=== PATIENT | male | born 1980 | race African-American/Black ===

== ENCOUNTER 2017-03-08 03:59 | Emergency (ER) | payer OTHER ==
[~2017-03-08] VITALS: Ht 188 cm; Wt 92.2 kg
[2017-03-08] MEDS ORDERED: FLOXIN OTIC0.3 % AD (04:21)
[2017-03-08] MEDS ORDERED: LORTAB 1010 MG PO (04:21)
[2017-03-08] MEDS ORDERED: AMOX/K CLAV875 M1 PO (04:21)
[2017-03-08 04:26] VITALS: BP 156/90
== END 2017-03-08 04:27 | disposition home or self-care (01) | DRG 153 ==
LOC: ED 03:59
DX: H66.91 Otitis media, unspecified, right ear (principal)

== ENCOUNTER 2018-05-18 18:17 | Emergency (ER) | payer SELFPAY ==
[~2018-05-18] VITALS: Ht 188 cm; Wt 86.0 kg
[~2018-05-18 18:17] MED LIST: AMOX/K CLAV875 M1 PO; FLOXIN OTIC0.3 % AD; LORTAB 1010 MG PO
[2018-05-18 19:52] VITALS: BP 127/59
== END 2018-05-18 19:52 | disposition home or self-care (01) | DRG 563 ==
LOC: ED 18:17
DX: S93.401A Sprain of unspecified ligament of right ankle, initial encounter (principal); X50.0XXA Overexertion from strenuous movement or load, initial encounter

== ENCOUNTER 2018-10-14 21:15 | Emergency (ER) | payer BC ==
[~2018-10-14] VITALS: Ht 188 cm; Wt 86.6 kg
[2018-10-14] MEDS ORDERED: VOLTAREN - GENE75 MG PO (21:49)
[2018-10-14 21:58] VITALS: BP 127/75
== END 2018-10-14 21:58 | disposition home or self-care (01) | DRG 395 ==
LOC: ED 21:15
DX: K40.90 Unilateral inguinal hernia, without obstruction or gangrene, not specified as recurrent (principal)

== ENCOUNTER → 2018-11-10 | Day surgery (SDC) | payer BC ==
[~2018-11-10] MED LIST changes: +VOLTAREN - GENE75 MG PO
[2018-11-10 07:33] VITALS: BP 123/57
[2018-11-10 09:04] LABS: BARBITURATES NEGATIVE (NEGATIVE); COCAINE POSITIVE (NEGATIVE); METHADONE NEGATIVE (NEGATIVE); OXCYCODONE NEGATIVE (NEGATIVE); TETRAHYDROCANNABIONOL POSITIVE (NEGATIVE); TRICYLIC ANTIDEPRESSANTS NEGATIVE (NEGATIVE)
== END | disposition home or self-care (01) | DRG 395 ==
LOC: ORM 07:09
PROVIDERS: ATTEND Surgery
DX: K40.20 Bilateral inguinal hernia, without obstruction or gangrene, not specified as recurrent (principal); R82.5 Elevated urine levels of drugs, medicaments and biological substances; Z53.09 Procedure and treatment not carried out because of other contraindication

== ENCOUNTER 2018-11-19 07:40 | Day surgery (SDC) | payer BC ==
[~2018-11-19] VITALS: Ht 188 cm; Wt 83.9 kg
[2018-11-19 08:13] LABS: BARBITURATES NEGATIVE (NEGATIVE); COCAINE NEGATIVE (NEGATIVE); METHADONE NEGATIVE (NEGATIVE); OXCYCODONE NEGATIVE (NEGATIVE); TETRAHYDROCANNABIONOL POSITIVE (NEGATIVE); TRICYLIC ANTIDEPRESSANTS NEGATIVE (NEGATIVE)
[2018-11-19] MEDS ORDERED: PERCOCET 5/325M1 TAB PO (10:04)
[2018-11-19 10:57] VITALS: BP 124/75
== END 2018-11-19 11:15 | disposition home or self-care (01) | DRG 352 ==
LOC: ORM 07:40
PROVIDERS: ATTEND Surgery
PROC: 0YUA4JZ Supplement Bilateral Inguinal Region with Synthetic Substitute, Percutaneous Endoscopic Approach (ICD-10-PCS; principal; 2018-11-19)
DX: K40.20 Bilateral inguinal hernia, without obstruction or gangrene, not specified as recurrent (principal)
CPT/HCPCS: C1781; J1100; J2710

== ENCOUNTER 2019-03-12 15:13 | Emergency (ER) | payer BC ==
[~2019-03-12] VITALS: Ht 188 cm; Wt 84.0 kg
[~2019-03-12 15:13] MED LIST changes: +PERCOCET 5/325M1 TAB PO
[2019-03-12 16:29] LABS: HEMATOCRIT 42.5 % (39.0-50.0); HEMOGLOBIN 13.9 g/dl (14.0-18.0); IMMATURE GRANULOCYTES 0.4 % (0.0-5.0); MEAN CELL VOLUME 90.2 fL CALC (80.0-100.0); MEAN CORPUSCULAR HGB 29.5 pG CALC (26.0-32.0); MEAN CORPUSCULAR HGB CONC 32.7 g/L CALC (32.0-36.0); NEUT# 7.93 thou/uL (1.82-7.42); RED BLOOD COUNT 4.71 mill/uL (4.70-6.10); RED CELL DISTRI WIDTH 12.8 % (11.5-15.5)
[2019-03-12 16:31] LABS: URINE BILIRUBIN - DIPSTICK NEGATIVE (NEGATIVE); URINE BLOOD DIPSTICK NEGATIVE (NEGATIVE); URINE COLOR YELLOW; URINE GLUCOSE - DIPSTICK NEGATIVE (NEGATIVE); URINE KETONE NEGATIVE (NEGATIVE); URINE LEUK ESTERASE NEGATIVE (NEGATIVE); URINE NITRITE - DIPSTICK NEGATIVE (Negative); URINE PROTEIN - DIPSTICK NEGATIVE (NEG-TRACE); URINE SPECIFIC GRAVITY <=1.005; URINE UROBILINOGEN - DIPSTICK 0.2 E.U./dL (0.2)
[2019-03-12 16:49] LABS: ALBUMIN 4.9 g/dL (3.2-5.0); ALKALINE PHOSPHATASE 55 u/l (38-126); ANION GAP 16 (6-22 (CALC)); BUN 5 mg/dL (9-20); BUN/CREATININE RATIO 5 (12-20 (CALC)); CARBON DIOXIDE 25 mmol/l (22-30); CHLORIDE 100 mmol/l (95-108); GFR > 60 ML/MIN (>=60 (CALC)); GFR FOR AFR.AMER. > 60 ML/MIN (>=60 (CALC)); POTASSIUM 3.5 mmol/l (3.5-5.1); SGOT/AST 50 u/l (17-59); SODIUM 138 mmol/l (137-146); TOTAL PROTEIN 8.7 g/dL (6.3-8.2)
[2019-03-12 16:50] LABS: BILIRUBIN, TOTAL 0.6 mg/dL (0.0-1.4)
[2019-03-12] MEDS ORDERED: ZOFRAN4 MG/TAB PO (17:55)
[2019-03-12 18:04] VITALS: BP 136/80
== END 2019-03-12 18:04 | disposition home or self-care (01) | DRG 392 ==
LOC: ED 15:13
DX: R11.2 Nausea with vomiting, unspecified (principal); F17.210 Nicotine dependence, cigarettes, uncomplicated

== ENCOUNTER 2020-04-10 22:31 | Emergency (ER) | payer SELFPAY ==
[~2020-04-10] VITALS: Ht 188 cm; Wt 100.0 kg
[~2020-04-10 22:31] MED LIST changes: +ZOFRAN4 MG/TAB PO
[2020-04-11] MEDS ORDERED: LORTAB 1010 MG PO (02:41)
[2020-04-11] MEDS ORDERED: CEPHALEXIN500 MG PO (02:41)
[2020-04-11 03:40] VITALS: BP 132/80
== END 2020-04-11 03:45 | disposition home or self-care (01) | DRG 563 ==
LOC: ED 22:31
PROC: 0HQNXZZ Repair Left Foot Skin, External Approach (ICD-10-PCS; principal; 2020-04-10)
DX: S92.532B Displaced fracture of distal phalanx of left lesser toe(s), initial encounter for open fracture (principal); F17.200 Nicotine dependence, unspecified, uncomplicated; W20.8XXA Other cause of strike by thrown, projected or falling object, initial encounter; Y93.89 Activity, other specified; Y92.410 Unspecified street and highway as the place of occurrence of the external cause; Z20.822 Contact with and (suspected) exposure to COVID-19

== ENCOUNTER 2020-05-27 18:15 | Emergency (ER) | payer SELFPAY ==
[~2020-05-27] VITALS: Ht 188 cm; Wt 90.0 kg
[~2020-05-27 18:15] MED LIST changes: +CEPHALEXIN500 MG PO
[2020-05-27 19:59] LABS: URINE BILIRUBIN - DIPSTICK NEGATIVE (NEGATIVE); URINE BLOOD DIPSTICK NEGATIVE (NEGATIVE); URINE COLOR YELLOW; URINE GLUCOSE - DIPSTICK NEGATIVE (NEGATIVE); URINE KETONE NEGATIVE (NEGATIVE); URINE LEUK ESTERASE NEGATIVE (NEGATIVE); URINE NITRITE - DIPSTICK NEGATIVE (Negative); URINE PROTEIN - DIPSTICK NEGATIVE (NEG-TRACE); URINE SPECIFIC GRAVITY 1.025; URINE UROBILINOGEN - DIPSTICK 0.2 E.U./dL (0.2)
[2020-05-27 19:59] LABS: HEMATOCRIT 42.3 % (39.0-50.0); HEMOGLOBIN 13.6 g/dl (14.0-18.0); IMMATURE GRANULOCYTES 0.2 % (0.0-5.0); MEAN CORPUSCULAR HGB 29.9 pG CALC (26.0-32.0); MEAN CORPUSCULAR HGB CONC 32.2 g/dL CAL (32.0-36.0); NEUT# 5.3 thou/uL (1.82-7.42); RED BLOOD COUNT 4.55 mill/uL (4.70-6.10); RED CELL DISTRI WIDTH 13.6 % (11.5-15.5)
[2020-05-27 20:13] LABS: ALKALINE PHOSPHATASE 47 u/l (38-126); BILIRUBIN, TOTAL 0.4 mg/dL (0.0-1.4); BUN 11 mg/dL (9-20); BUN/CREATININE RATIO 14 (12-20 (CALC)); CARBON DIOXIDE 26 mmol/l (22-30); CHLORIDE 105 mmol/l (95-108); CREATININE 0.8 mg/dL (0.7-1.3); GFR > 60 ML/MIN (>=60 (CALC)); GFR FOR AFR.AMER. > 60 ML/MIN (>=60 (CALC)); SGOT/AST 19 u/l (17-59); SODIUM 136 mmol/l (137-146)
[2020-05-27 20:36] LABS: ALBUMIN 3.6 g/dL (3.2-5.0); ANION GAP 9 (6-22 (CALC)); POTASSIUM 4.3 mmol/l (3.5-5.1); TOTAL PROTEIN 6.4 g/dL (6.3-8.2)
[2020-05-27] MEDS ORDERED: VOLTAREN75 MG PO (20:41)
[2020-05-27 20:50] VITALS: BP 118/77
== END 2020-05-27 20:50 | disposition home or self-care (01) | DRG 563 ==
LOC: ED 18:15
PROVIDERS: Family Medicine
DX: S39.012A Strain of muscle, fascia and tendon of lower back, initial encounter (principal); X58.XXXA Exposure to other specified factors, initial encounter

== ENCOUNTER 2021-04-09 07:49 | Emergency (ER) | payer SELFPAY ==
[~2021-04-09] VITALS: Ht 188 cm; Wt 79.0 kg
[~2021-04-09 07:49] MED LIST changes: +VOLTAREN75 MG PO
[2021-04-09 08:13] VITALS: BP 128/81
[2021-04-09 08:21] LABS: HEMATOCRIT 42.5 % (39.0-50.0); HEMOGLOBIN 14.2 g/dl (14.0-18.0); IMMATURE GRANULOCYTES 0.1 % (0.0-5.0); MEAN CORPUSCULAR HGB 30.4 pG CALC (26.0-32.0); MEAN CORPUSCULAR HGB CONC 33.4 g/dL CAL (32.0-36.0); NEUT# 8.09 thou/uL (1.82-7.42); RED BLOOD COUNT 4.67 mill/uL (4.70-6.10); RED CELL DISTRI WIDTH 12.7 % (11.5-15.5)
[2021-04-09 08:25] LABS: URINE BILIRUBIN - DIPSTICK NEGATIVE (NEGATIVE); URINE BLOOD DIPSTICK NEGATIVE (NEGATIVE); URINE COLOR YELLOW; URINE GLUCOSE - DIPSTICK NEGATIVE (NEGATIVE); URINE KETONE NEGATIVE (NEGATIVE); URINE LEUK ESTERASE NEGATIVE (NEGATIVE); URINE PROTEIN - DIPSTICK NEGATIVE (NEG-TRACE); URINE SPECIFIC GRAVITY <=1.005
[2021-04-09 08:27] LABS: URINE NITRITE - DIPSTICK NEGATIVE (Negative)
[2021-04-09 08:41] LABS: ALBUMIN 4.2 g/dL (3.2-5.0); ALKALINE PHOSPHATASE 61 u/l (38-126); BUN 8 mg/dL (9-20); BUN/CREATININE RATIO 9 (12-20 (CALC)); CARBON DIOXIDE 26 mmol/l (22-30); CHLORIDE 105 mmol/l (95-108); CREATININE 0.9 mg/dL (0.7-1.3); GFR > 60 ML/MIN (>=60 (CALC)); GFR FOR AFR.AMER. > 60 ML/MIN (>=60 (CALC)); SGOT/AST 26 u/l (17-59); SODIUM 139 mmol/l (137-146); TOTAL PROTEIN 7.5 g/dL (6.3-8.2)
[2021-04-09 08:42] LABS: ANION GAP 11 (6-22 (CALC)); BILIRUBIN, TOTAL 0.6 mg/dL (0.0-1.4); POTASSIUM 3.3 mmol/l (3.5-5.1)
== END 2021-04-09 09:55 | disposition home or self-care (01) | DRG 730 ==
LOC: ED 07:49
PROVIDERS: Family Medicine
DX: N50.82 Scrotal pain (principal); K62.89 Other specified diseases of anus and rectum
CPT/HCPCS: Q9967